=== PATIENT | female | born 1950 | race Two or more races ===

== ENCOUNTER 2018-04-26 09:42 | Emergency (ER) | payer OTHER ==
[~2018-04-26] VITALS: Ht 152.4 cm; Wt 48.7 kg
[2018-04-26 10:00] VITALS: Ht 152.4 cm; Wt 48.7 kg
[2018-04-26 10:47] LABS: BASOPHIL % 0.6 % (0-2); PLATELET COUNT 344 x10^3mcL (130-400); RED CELL DISTRIBUTION WIDTH 13.9 % (11.5-14.5)
[2018-04-26 11:00] LABS: CALCIUM 9.2 mg/dL (8.5-10.1); CARBON DIOXIDE 26.5 mmol/L (21-32); CHLORIDE SERUM 102 mmol/L (98-107); CREATININE SERUM 0.5 mg/dL (0.6-1.0); GFR1 > 60 mL/min; GLUCOSE SERUM 114 mg/dL (74-106); SODIUM SERUM 139 mmol/L (136-145)
[2018-04-26 11:32] LABS: UA SPECIFIC GRAVITY <=1.005 (1.005-1.035); microscopic required? YES; urine erythrocyte NEGATIVE (NEGATIVE)
[2018-04-26 12:10] VITALS: BP 133/86
== END 2018-04-26 12:10 | disposition home or self-care (01) ==
LOC: ED 09:42
PROVIDERS: Emergency Medicine
DX: N39.0 Urinary tract infection, site not specified (principal); G89.29 Other chronic pain; M54.9 Dorsalgia, unspecified; I10 Essential (primary) hypertension
CPT/HCPCS: 36415; 36600; J3010; J7613; J7644; Q0092